=== PATIENT | female | born 1945 | race Caucasian/White ===

== ENCOUNTER 2017-11-28 05:13 | Outpatient (RCR) | payer MEDICARE, SELFPAY ==
[2017-11-28] MEDS: Normal Saline Flush 10 ML SYR IVP (07:35)
[2017-11-28 07:54] LABS: Abs Immature Grans 0.01 k/cumm (0.0-0.09); Absolute Basophil Count 0.01 k/cumm (0.0-0.2); Absolute Lymphocyte Count 0.88 k/cumm (1.2-3.4); Absolute Monocyte Count 0.99 k/cumm (0.11-0.7); Basophils % 0.4; Eosinophils % 7.2; HCT 27.2 % (36.0-46.0); HGB 8.6 g/dL (12.0-15.5); Immature Grans % 0.4; Lymphocytes % 31.5; Mean Corp. HGB Concentration 31.6 g/dL (32.0-36.0); Mean Corpuscular Hemoglobin 25.7 pg (27.0-33.0); Mean Corpuscular Volume 81.4 fL (80-95); Mean Platelet Volume 9.1 fL (8.0-11.0); Monocytes % 35.5; Platelet Count 516 x1000/uL (130-400); RBC 3.34 m/cumm (4.00-5.20); RBC Distribution Width 14.8 % (11.7-14.6); White Blood Cell Count 2.79 k/cumm (4.4-10.8)
[2017-11-28 08:07] LABS: ALT 44 U/L (12-78); AST 24 U/L (15-37); Albumin 2.6 g/dL (3.4-5.0); Alkaline Phosphatase 164 U/L (46-116); Anion Gap 6.3 mmol/L (3-11); BUN 13 mg/dL (7-18); Bilirubin, Total 0.2 mg/dL (0.2-1.0); CO2 27.7 mmol/L (21.0-32.0); CREATININE 0.99 mg/dL (0.55-1.02); Calcium 8.5 mg/dL (8.5-10.1); Chloride 97 mmol/L (98-107); Estimated GFR 55.29 (mL/min/1.73m2); Glucose 133 mg/dL (70-100); Potassium 4.5 mmol/L (3.5-5.1); Sodium 131 mmol/L (136-145); Total Protein 6.7 g/dL (6.4-8.2)
[2017-12-01 11:43] LABS: CA 19-9 21 U/mL (<35)
[2017-12-05] MEDS: Normal Saline Flush 10 ML SYR IVP (08:05)
[2017-12-05 08:29] LABS: Abs Immature Grans 0.07 k/cumm (0.0-0.09); Absolute Basophil Count 0.05 k/cumm (0.0-0.2); Absolute Eosinophil Count 0.15 k/cumm (0.0-0.7); Absolute Lymphocyte Count 1.48 k/cumm (1.2-3.4); Absolute Monocyte Count 1.16 k/cumm (0.11-0.7); Absolute Neutrophil Count 6.77 k/cumm (1.2-6.7); Basophils % 0.5; Eosinophils % 1.5; HCT 28.6 % (36.0-46.0); HGB 8.8 g/dL (12.0-15.5); Immature Grans % 0.7; Lymphocytes % 15.3; Mean Corp. HGB Concentration 30.8 g/dL (32.0-36.0); Mean Corpuscular Hemoglobin 25.4 pg (27.0-33.0); Mean Corpuscular Volume 82.7 fL (80-95); Mean Platelet Volume 9.7 fL (8.0-11.0); Platelet Count 535 x1000/uL (130-400); RBC 3.46 m/cumm (4.00-5.20); RBC Distribution Width 15.4 % (11.7-14.6); White Blood Cell Count 9.68 k/cumm (4.4-10.8)
[2017-12-05 08:44] LABS: ALT 26 U/L (12-78); AST 21 U/L (15-37); Albumin 2.6 g/dL (3.4-5.0); Alkaline Phosphatase 165 U/L (46-116); Anion Gap 9.9 mmol/L (3-11); BUN 19 mg/dL (7-18); Bilirubin, Total 0.2 mg/dL (0.2-1.0); CO2 29.1 mmol/L (21.0-32.0); CREATININE 1.08 mg/dL (0.55-1.02); Calcium 8.3 mg/dL (8.5-10.1); Chloride 96 mmol/L (98-107); Estimated GFR 50.01 (mL/min/1.73m2); Glucose 264 mg/dL (70-100); Sodium 135 mmol/L (136-145); Total Protein 6.9 g/dL (6.4-8.2)
[2017-12-05 09:15] LABS: Diff Comment Diff Reviewed
[2017-12-05 09:16] LABS: Hypochromasia 1+
[2017-12-09 11:47] LABS: CA 19-9 18 U/mL (<35)
[2017-12-19] MEDS: Normal Saline Flush 10 ML SYR IVP (08:01)
[2017-12-19 08:23] LABS: Abs Immature Grans 0.01 k/cumm (0.0-0.09); Absolute Basophil Count 0.02 k/cumm (0.0-0.2); Absolute Eosinophil Count 0.11 k/cumm (0.0-0.7); Absolute Lymphocyte Count 1.17 k/cumm (1.2-3.4); Absolute Monocyte Count 0.97 k/cumm (0.11-0.7); Basophils % 0.4; HCT 29.8 % (36.0-46.0); HGB 9.4 g/dL (12.0-15.5); Immature Grans % 0.2; Mean Corp. HGB Concentration 31.5 g/dL (32.0-36.0); Mean Corpuscular Hemoglobin 25.4 pg (27.0-33.0); Mean Corpuscular Volume 80.5 fL (80-95); Mean Platelet Volume 9.8 fL (8.0-11.0); Monocytes % 17.4; Platelet Count 475 x1000/uL (130-400); RBC Distribution Width 15.9 % (11.7-14.6); White Blood Cell Count 5.58 k/cumm (4.4-10.8)
[2017-12-19 08:37] LABS: ALT 32 U/L (12-78); AST 22 U/L (15-37); Alkaline Phosphatase 166 U/L (46-116); Anion Gap 4.6 mmol/L (3-11); BUN 14 mg/dL (7-18); Bilirubin, Total 0.3 mg/dL (0.2-1.0); CO2 31.4 mmol/L (21.0-32.0); CREATININE 1.12 mg/dL (0.55-1.02); Calcium 8.8 mg/dL (8.5-10.1); Chloride 98 mmol/L (98-107); Estimated GFR 47.96 (mL/min/1.73m2); Glucose 159 mg/dL (70-100); Potassium 4.3 mmol/L (3.5-5.1); Sodium 134 mmol/L (136-145); Total Protein 7.3 g/dL (6.4-8.2)
[2017-12-22 10:45] LABS: CA 19-9 25 U/mL (<35)
== END 2017-12-26 ==
LOC: INF 12-05 01:07
PROVIDERS: PCP Internal Medicine; Visit Provider Internal Medicine Hematology & Oncology
DX: C25.2 Malignant neoplasm of tail of pancreas (principal); C78.7 Secondary malignant neoplasm of liver and intrahepatic bile duct; Z45.2 Encounter for adjustment and management of vascular access device
CPT/HCPCS: 36591 ×3; 80053; 85025; 86301

== ENCOUNTER 2018-01-02 08:54 | Outpatient (CLI) | payer MEDICARE, SELFPAY ==
--- NOTE | 2018-01-02 09:09 | DI.US_ITS ---
SYMPTOM/DIAGNOSIS: LOW EXT EDEMA, R60.0, SWELLING, PAIN, H/O METASTATIC PANCREATIC CA, ? DVT LEFT LOWER EXTREMITY ULTRASOUND: The femoral and popliteal veins and visualized calf veins are freely compressible. No thrombus is visible. The doppler venous wave form augments normally. No localized fluid collection or hematoma is seen. IMPRESSION: Negative left lower extremity ultrasound. No evidence of DVT.
== END 2018-01-02 09:14 ==
PROVIDERS: PCP Internal Medicine; Visit Provider Internal Medicine Hematology & Oncology
DX: R60.0 Localized edema (principal); R22.42 Localized swelling, mass and lump, left lower limb; M79.605 Pain in left leg; Z85.07 Personal history of malignant neoplasm of pancreas
CPT/HCPCS: 93971

== ENCOUNTER 2018-01-16 00:40 | Outpatient (RCR) | payer MEDICARE, SELFPAY ==
[2018-01-02] MEDS: Normal Saline Flush 10 ML SYR IVP (07:00)
[2018-01-02 07:22] LABS: Abs Immature Grans 0.01 k/cumm (0.0-0.09); Absolute Basophil Count 0.03 k/cumm (0.0-0.2); Absolute Eosinophil Count 0.21 k/cumm (0.0-0.7); Absolute Lymphocyte Count 1.26 k/cumm (1.2-3.4); Absolute Monocyte Count 1.08 k/cumm (0.11-0.7); Absolute Neutrophil Count 3.94 k/cumm (1.2-6.7); Basophils % 0.5; Eosinophils % 3.2; HCT 30.1 % (36.0-46.0); HGB 9.3 g/dL (12.0-15.5); Immature Grans % 0.2; Lymphocytes % 19.3; Mean Corp. HGB Concentration 30.9 g/dL (32.0-36.0); Mean Corpuscular Hemoglobin 25.1 pg (27.0-33.0); Mean Corpuscular Volume 81.1 fL (80-95); Mean Platelet Volume 10.1 fL (8.0-11.0); Monocytes % 16.5; Neutrophils % 60.3; Platelet Count 351 x1000/uL (130-400); RBC 3.71 m/cumm (4.00-5.20); RBC Distribution Width 17.7 % (11.7-14.6); White Blood Cell Count 6.53 k/cumm (4.4-10.8)
[2018-01-02 07:35] LABS: ALT 20 U/L (12-78); AST 21 U/L (15-37); Alkaline Phosphatase 143 U/L (46-116); Anion Gap 2.7 mmol/L (3-11); BUN 15 mg/dL (7-18); Bilirubin, Total 0.2 mg/dL (0.2-1.0); CO2 30.3 mmol/L (21.0-32.0); CREATININE 1.13 mg/dL (0.55-1.02); Calcium 8.5 mg/dL (8.5-10.1); Chloride 102 mmol/L (98-107); Estimated GFR 47.47 (mL/min/1.73m2); Glucose 143 mg/dL (70-100); Potassium 4.3 mmol/L (3.5-5.1); Sodium 135 mmol/L (136-145)
[2018-01-05 11:56] LABS: CA 19-9 26 U/mL (<35)
[2018-01-16] MEDS: Normal Saline Flush 10 ML SYR IVP (07:05)
[2018-01-16 07:36] LABS: Absolute Basophil Count 0.03 k/cumm (0.0-0.2); Absolute Eosinophil Count 0.11 k/cumm (0.0-0.7); Absolute Lymphocyte Count 1.84 k/cumm (1.2-3.4); Absolute Monocyte Count 0.98 k/cumm (0.11-0.7); Absolute Neutrophil Count 2.11 k/cumm (1.2-6.7); Basophils % 0.6; Eosinophils % 2.2; HCT 31.7 % (36.0-46.0); HGB 9.8 g/dL (12.0-15.5); Lymphocytes % 36.3; Mean Corp. HGB Concentration 30.9 g/dL (32.0-36.0); Mean Corpuscular Hemoglobin 25.6 pg (27.0-33.0); Mean Corpuscular Volume 82.8 fL (80-95); Mean Platelet Volume 9.7 fL (8.0-11.0); Monocytes % 19.3; Neutrophils % 41.6; Platelet Count 294 x1000/uL (130-400); RBC 3.83 m/cumm (4.00-5.20); RBC Distribution Width 19.9 % (11.7-14.6); White Blood Cell Count 5.07 k/cumm (4.4-10.8)
[2018-01-16 07:58] LABS: ALT 25 U/L (12-78); AST 23 U/L (15-37); Albumin 3.2 g/dL (3.4-5.0); Alkaline Phosphatase 132 U/L (46-116); BUN 12 mg/dL (7-18); Bilirubin, Total 0.3 mg/dL (0.2-1.0); CREATININE 0.96 mg/dL (0.55-1.02); Chloride 102 mmol/L (98-107); Estimated GFR 57.29 (mL/min/1.73m2); Glucose 155 mg/dL (70-100); Potassium 4.2 mmol/L (3.5-5.1); Sodium 139 mmol/L (136-145); Total Protein 7.1 g/dL (6.4-8.2)
[2018-01-19 10:21] LABS: CA 19-9 20 U/mL (<35)
== END 2018-01-25 23:59 | disposition home or self-care (01) ==
LOC: INF 00:40
PROVIDERS: PCP Internal Medicine; Visit Provider Internal Medicine Hematology & Oncology
DX: C25.9 Malignant neoplasm of pancreas, unspecified (principal); C78.7 Secondary malignant neoplasm of liver and intrahepatic bile duct; Z45.2 Encounter for adjustment and management of vascular access device
CPT/HCPCS: 36591; 80053; 85025; 86301; 93971

== ENCOUNTER 2018-02-13 02:29 | Outpatient (RCR) | payer MEDICARE, SELFPAY ==
[2018-01-30] MEDS: Normal Saline Flush 10 ML SYR IVP (07:50)
[2018-01-30 08:17] LABS: Abs Immature Grans 0.01 k/cumm (0.0-0.09); Absolute Basophil Count 0.02 k/cumm (0.0-0.2); Absolute Eosinophil Count 0.09 k/cumm (0.0-0.7); Absolute Lymphocyte Count 2.18 k/cumm (1.2-3.4); Absolute Monocyte Count 0.99 k/cumm (0.11-0.7); Absolute Neutrophil Count 2.33 k/cumm (1.2-6.7); Basophils % 0.4; Eosinophils % 1.6; HGB 9.6 g/dL (12.0-15.5); Immature Grans % 0.2; Lymphocytes % 38.8; Mean Corpuscular Hemoglobin 26.9 pg (27.0-33.0); Monocytes % 17.6; Neutrophils % 41.4; Platelet Count 285 x1000/uL (130-400); RBC 3.57 m/cumm (4.00-5.20); RBC Distribution Width 21.4 % (11.7-14.6); White Blood Cell Count 5.62 k/cumm (4.4-10.8)
[2018-01-30 08:28] LABS: ALT 21 U/L (12-78); AST 20 U/L (15-37); Albumin 3.3 g/dL (3.4-5.0); Alkaline Phosphatase 113 U/L (46-116); Anion Gap 7.6 mmol/L (3-11); BUN 16 mg/dL (7-18); Bilirubin, Total 0.4 mg/dL (0.2-1.0); CO2 29.4 mmol/L (21.0-32.0); CREATININE 1.02 mg/dL (0.55-1.02); Chloride 100 mmol/L (98-107); Estimated GFR 53.42 (mL/min/1.73m2); Glucose 171 mg/dL (70-100); Sodium 137 mmol/L (136-145); Total Protein 7.1 g/dL (6.4-8.2)
[2018-02-02 11:39] LABS: CA 19-9 20 U/mL (<35)
[2018-02-13] MEDS: Normal Saline Flush 10 ML SYR IVP (07:20)
[2018-02-13 07:40] LABS: Abs Immature Grans 0.01 k/cumm (0.0-0.09); Absolute Basophil Count 0.04 k/cumm (0.0-0.2); Absolute Eosinophil Count 0.11 k/cumm (0.0-0.7); Absolute Lymphocyte Count 1.34 k/cumm (1.2-3.4); Absolute Monocyte Count 0.95 k/cumm (0.11-0.7); Absolute Neutrophil Count 2.07 k/cumm (1.2-6.7); Basophils % 0.9; Eosinophils % 2.4; HCT 30.7 % (36.0-46.0); HGB 9.6 g/dL (12.0-15.5); Immature Grans % 0.2; Lymphocytes % 29.6; Mean Corp. HGB Concentration 31.3 g/dL (32.0-36.0); Mean Corpuscular Hemoglobin 27.2 pg (27.0-33.0); Mean Platelet Volume 10.4 fL (8.0-11.0); Neutrophils % 45.9; Platelet Count 262 x1000/uL (130-400); RBC 3.53 m/cumm (4.00-5.20); RBC Distribution Width 22.3 % (11.7-14.6); White Blood Cell Count 4.52 k/cumm (4.4-10.8)
[2018-02-13 07:57] LABS: ALT 22 U/L (12-78); AST 21 U/L (15-37); Alkaline Phosphatase 120 U/L (46-116); Anion Gap 7.1 mmol/L (3-11); BUN 13 mg/dL (7-18); Bilirubin, Total 0.3 mg/dL (0.2-1.0); CO2 29.9 mmol/L (21.0-32.0); CREATININE 0.95 mg/dL (0.55-1.02); Calcium 9.1 mg/dL (8.5-10.1); Chloride 104 mmol/L (98-107); Estimated GFR 57.99 (mL/min/1.73m2); Glucose 122 mg/dL (70-100); Potassium 4.1 mmol/L (3.5-5.1); Sodium 141 mmol/L (136-145); Total Protein 6.7 g/dL (6.4-8.2)
[2018-02-16 11:21] LABS: CA 19-9 16 U/mL (<35)
== END 2018-02-25 23:59 | disposition home or self-care (01) ==
LOC: INF 02:29
PROVIDERS: PCP Internal Medicine; Visit Provider Internal Medicine Hematology & Oncology
DX: C25.9 Malignant neoplasm of pancreas, unspecified (principal); C78.7 Secondary malignant neoplasm of liver and intrahepatic bile duct; Z45.2 Encounter for adjustment and management of vascular access device
CPT/HCPCS: 36591; 80053; 85025; 86301

== ENCOUNTER 2018-03-27 00:46 | Outpatient (RCR) | payer MEDICARE, SELFPAY ==
[2018-02-27] MEDS: Normal Saline Flush 10 ML SYR IVP (07:05)
[2018-02-27 07:17] LABS: Abs Immature Grans 0.03 k/cumm (0.0-0.09); Absolute Basophil Count 0.04 k/cumm (0.0-0.2); Absolute Eosinophil Count 0.14 k/cumm (0.0-0.7); Absolute Monocyte Count 1.46 k/cumm (0.11-0.7); Absolute Neutrophil Count 5.68 k/cumm (1.2-6.7); Basophils % 0.5; Eosinophils % 1.6; HCT 32.3 % (36.0-46.0); Immature Grans % 0.3; Lymphocytes % 16.9; Mean Corpuscular Hemoglobin 27.9 pg (27.0-33.0); Mean Corpuscular Volume 90.2 fL (80-95); Mean Platelet Volume 10.3 fL (8.0-11.0); Monocytes % 16.5; Neutrophils % 64.2; Platelet Count 343 x1000/uL (130-400); RBC 3.58 m/cumm (4.00-5.20); RBC Distribution Width 20.2 % (11.7-14.6); White Blood Cell Count 8.85 k/cumm (4.4-10.8)
[2018-02-27 07:32] LABS: ALT 19 U/L (12-78); AST 20 U/L (15-37); Alkaline Phosphatase 119 U/L (46-116); Anion Gap 8.5 mmol/L (3-11); BUN 14 mg/dL (7-18); Bilirubin, Total 0.3 mg/dL (0.2-1.0); CO2 29.5 mmol/L (21.0-32.0); CREATININE 1.07 mg/dL (0.55-1.02); Calcium 9.1 mg/dL (8.5-10.1); Chloride 97 mmol/L (98-107); Estimated GFR 50.55 (mL/min/1.73m2); Glucose 185 mg/dL (70-100); Potassium 4.2 mmol/L (3.5-5.1); Sodium 135 mmol/L (136-145); Total Protein 6.9 g/dL (6.4-8.2)
[2018-03-02 10:18] LABS: CA 19-9 18 U/mL (<35)
[2018-03-13] MEDS: Normal Saline Flush 10 ML SYR IVP (07:10)
[2018-03-13 07:29] LABS: Absolute Basophil Count 0.03 k/cumm (0.0-0.2); Absolute Eosinophil Count 0.15 k/cumm (0.0-0.7); Absolute Lymphocyte Count 1.13 k/cumm (1.2-3.4); Absolute Monocyte Count 0.92 k/cumm (0.11-0.7); Absolute Neutrophil Count 3.08 k/cumm (1.2-6.7); Basophils % 0.6; Eosinophils % 2.8; HCT 30.5 % (36.0-46.0); HGB 9.6 g/dL (12.0-15.5); Lymphocytes % 21.3; Mean Corp. HGB Concentration 31.5 g/dL (32.0-36.0); Mean Corpuscular Hemoglobin 28.4 pg (27.0-33.0); Mean Corpuscular Volume 90.2 fL (80-95); Mean Platelet Volume 10.1 fL (8.0-11.0); Monocytes % 17.3; Platelet Count 324 x1000/uL (130-400); RBC 3.38 m/cumm (4.00-5.20); RBC Distribution Width 17.3 % (11.7-14.6); White Blood Cell Count 5.31 k/cumm (4.4-10.8)
[2018-03-13 07:41] LABS: ALT 19 U/L (12-78); AST 18 U/L (15-37); Albumin 2.9 g/dL (3.4-5.0); Alkaline Phosphatase 139 U/L (46-116); Anion Gap 7.4 mmol/L (3-11); BUN 11 mg/dL (7-18); Bilirubin, Total 0.3 mg/dL (0.2-1.0); CO2 29.6 mmol/L (21.0-32.0); CREATININE 1.04 mg/dL (0.55-1.02); Calcium 8.9 mg/dL (8.5-10.1); Chloride 101 mmol/L (98-107); Estimated GFR 52.24 (mL/min/1.73m2); Glucose 201 mg/dL (70-100); Potassium 4.3 mmol/L (3.5-5.1); Sodium 138 mmol/L (136-145); Total Protein 6.9 g/dL (6.4-8.2)
[2018-03-16 11:20] LABS: CA 19-9 14 U/mL (<35)
[2018-03-27] MEDS: Heparin 500 UNITS/5 ML SYRINGE IV (08:27)
[2018-03-27] MEDS: Normal Saline Flush 10 ML SYR IVP (08:27)
[2018-03-27 09:22] LABS: Abs Immature Grans 0.01 k/cumm (0.0-0.09); Absolute Basophil Count 0.02 k/cumm (0.0-0.2); Absolute Eosinophil Count 0.08 k/cumm (0.0-0.7); Absolute Lymphocyte Count 1.43 k/cumm (1.2-3.4); Absolute Monocyte Count 1.22 k/cumm (0.11-0.7); Absolute Neutrophil Count 2.62 k/cumm (1.2-6.7); Basophils % 0.4; Eosinophils % 1.5; HCT 31.3 % (36.0-46.0); HGB 9.9 g/dL (12.0-15.5); Immature Grans % 0.2; Lymphocytes % 26.6; Mean Corp. HGB Concentration 31.6 g/dL (32.0-36.0); Mean Corpuscular Volume 88.7 fL (80-95); Mean Platelet Volume 10.4 fL (8.0-11.0); Monocytes % 22.7; Neutrophils % 48.6; Platelet Count 341 x1000/uL (130-400); RBC 3.53 m/cumm (4.00-5.20); RBC Distribution Width 16.4 % (11.7-14.6); White Blood Cell Count 5.38 k/cumm (4.4-10.8)
[2018-03-27 09:24] LABS: ALT 31 U/L (12-78); AST 21 U/L (15-37); Albumin 3.1 g/dL (3.4-5.0); Alkaline Phosphatase 146 U/L (46-116); Anion Gap 5.9 mmol/L (3-11); BUN 14 mg/dL (7-18); Bilirubin, Total 0.2 mg/dL (0.2-1.0); CO2 31.1 mmol/L (21.0-32.0); CREATININE 1.06 mg/dL (0.55-1.02); Calcium 9.2 mg/dL (8.5-10.1); Chloride 99 mmol/L (98-107); Glucose 169 mg/dL (70-100); Potassium 4.6 mmol/L (3.5-5.1); Sodium 136 mmol/L (136-145); Total Protein 7.4 g/dL (6.4-8.2)
[2018-03-30 11:35] LABS: CA 19-9 21 U/mL (<35)
== END 2018-03-27 23:59 | disposition home or self-care (01) ==
LOC: INF 00:46
PROVIDERS: PCP Internal Medicine; Visit Provider Internal Medicine Hematology & Oncology
DX: C25.9 Malignant neoplasm of pancreas, unspecified (principal); C78.7 Secondary malignant neoplasm of liver and intrahepatic bile duct; Z45.2 Encounter for adjustment and management of vascular access device
CPT/HCPCS: 36591; 80053; 85025; 86301

== ENCOUNTER 2018-04-24 01:29 | Outpatient (RCR) | payer MEDICARE, SELFPAY ==
[2018-04-07] MEDS: Normal Saline Flush 10 ML SYR IVP (08:51)
[2018-04-07 09:09] LABS: Abs Immature Grans 0.04 k/cumm (0.0-0.09); Absolute Basophil Count 0.02 k/cumm (0.0-0.2); Absolute Lymphocyte Count 1.55 k/cumm (1.2-3.4); Absolute Monocyte Count 1.85 k/cumm (0.11-0.7); Absolute Neutrophil Count 5.89 k/cumm (1.2-6.7); Basophils % 0.2; Eosinophils % 1.1; HCT 31.5 % (36.0-46.0); HGB 9.6 g/dL (12.0-15.5); Immature Grans % 0.4; Lymphocytes % 16.4; Mean Corp. HGB Concentration 30.5 g/dL (32.0-36.0); Mean Corpuscular Hemoglobin 27.2 pg (27.0-33.0); Mean Corpuscular Volume 89.2 fL (80-95); Mean Platelet Volume 10.6 fL (8.0-11.0); Monocytes % 19.6; Neutrophils % 62.3; Platelet Count 427 x1000/uL (130-400); RBC 3.53 m/cumm (4.00-5.20); RBC Distribution Width 15.9 % (11.7-14.6); White Blood Cell Count 9.45 k/cumm (4.4-10.8)
[2018-04-07 09:25] LABS: ALT 19 U/L (12-78); AST 22 U/L (15-37); Albumin 2.8 g/dL (3.4-5.0); Alkaline Phosphatase 136 U/L (46-116); Anion Gap 8.1 mmol/L (3-11); BUN 14 mg/dL (7-18); Bilirubin, Total 0.3 mg/dL (0.2-1.0); CO2 29.9 mmol/L (21.0-32.0); CREATININE 1.05 mg/dL (0.55-1.02); Calcium 8.9 mg/dL (8.5-10.1); Chloride 96 mmol/L (98-107); Estimated GFR 51.66 (mL/min/1.73m2); Glucose 161 mg/dL (70-100); Potassium 4.1 mmol/L (3.5-5.1); Sodium 134 mmol/L (136-145); Total Protein 7.3 g/dL (6.4-8.2)
[2018-04-07 09:26] LABS: Acanthocytes 2+; Anisocytosis 1+; Diff Comment Diff Reviewed
[2018-04-07 09:27] LABS: Howell-Jolly Bodies Present; Hypochromasia 1+; Schistocytes 1+
[2018-04-07 09:28] LABS: Poikilocytes 2+
[2018-04-08 10:36] LABS: CA 19-9 15 U/mL (<35)
[2018-04-24] MEDS: Normal Saline Flush 10 ML SYR IVP (08:11)
[2018-04-24 08:25] LABS: Abs Immature Grans 0.02 k/cumm (0.0-0.09); Absolute Basophil Count 0.02 k/cumm (0.0-0.2); Absolute Eosinophil Count 0.12 k/cumm (0.0-0.7); Absolute Lymphocyte Count 0.97 k/cumm (1.2-3.4); Absolute Monocyte Count 1.48 k/cumm (0.11-0.7); Absolute Neutrophil Count 2.96 k/cumm (1.2-6.7); Basophils % 0.4; Eosinophils % 2.2; HGB 9.4 g/dL (12.0-15.5); Immature Grans % 0.4; Lymphocytes % 17.4; Mean Corp. HGB Concentration 31.3 g/dL (32.0-36.0); Mean Corpuscular Hemoglobin 27.5 pg (27.0-33.0); Mean Corpuscular Volume 87.7 fL (80-95); Mean Platelet Volume 10.6 fL (8.0-11.0); Monocytes % 26.6; Platelet Count 413 x1000/uL (130-400); RBC 3.42 m/cumm (4.00-5.20); RBC Distribution Width 15.4 % (11.7-14.6); White Blood Cell Count 5.57 k/cumm (4.4-10.8)
[2018-04-24 08:40] LABS: ALT 17 U/L (12-78); AST 17 U/L (15-37); Albumin 2.6 g/dL (3.4-5.0); Alkaline Phosphatase 126 U/L (46-116); Anion Gap 4.5 mmol/L (3-11); BUN 13 mg/dL (7-18); Bilirubin, Total 0.3 mg/dL (0.2-1.0); CO2 31.5 mmol/L (21.0-32.0); CREATININE 1.07 mg/dL (0.55-1.02); Chloride 94 mmol/L (98-107); Estimated GFR 50.55 (mL/min/1.73m2); Glucose 210 mg/dL (70-100); Potassium 4.3 mmol/L (3.5-5.1); Sodium 130 mmol/L (136-145); Total Protein 6.8 g/dL (6.4-8.2)
== END 2018-04-27 23:59 | disposition home or self-care (01) ==
LOC: INF 01:29
PROVIDERS: PCP Internal Medicine; Visit Provider Internal Medicine Hematology & Oncology
DX: C25.9 Malignant neoplasm of pancreas, unspecified (principal); C78.7 Secondary malignant neoplasm of liver and intrahepatic bile duct; Z45.2 Encounter for adjustment and management of vascular access device
CPT/HCPCS: 36591; 80053; 85025; 86301

== ENCOUNTER 2018-05-15 10:21 | Emergency (ER) | payer MEDICARE, SELFPAY ==
[2018-05-15] VITALS (46 sets, daily range): BP systolic 139–178; BP diastolic 63–93; PULSE 67–85; RESP 10–28; TEMP 36.5; O2SAT 95–100
--- NOTE | 2018-05-15 11:03 | ED.GENADUL_ITS ---
Discharge Plan Disposition Patient Disposition: HOME Condition: Stable Discharge Details Chief Complaint: Chest Pain Clinical Impression: Pulmonary embolism, History of pancreatic cancer, Lung metastasis, Liver metastases Primary Care Provider: Sagar Wiley ED Provider: Selene Pwoer Home Meds and New Rx's Prescriptions: New enoxaparin [Lovenox] 60 mg/0.6 mL syringe 60 mg SC Q12H 30 Days Qty: 36 RF: 0 Continued atorvastatin 80 MG tablet 80 mg PO DAILY RF: 0 acetaminophen 325 MG tablet 650 mg PO Q6H PRN RF: 0 ondansetron HCl 8 MG tablet 8 mg PO Q8H PRN RF: 0 prochlorperazine maleate 10 MG tablet 10 mg PO Q6H PRN Qty: 6 RF: 6 aspirin 81 MG tablet,delayed release (DR/EC) 81 mg PO DAILY RF: 0 alprazolam 0.25 MG tablet 0.25 mg PO DAILY RF: 0 pantoprazole 40 MG tablet,delayed release (DR/EC) 40 mg PO BID RF: 0 losartan 25 MG tablet 25 mg PO DAILY RF: 0 nitroglycerin 0.4 MG tablet, sublingual 0.4 mg Buccal ONCE RF: 0 docusate sodium 100 MG capsule 100 mg PO Q12H PRN RF: 0 vitamin B complex [B Complex-Vitamin B12] 1 EACH tablet 1 ea PO DAILY RF: 0 oxycodone 5 MG tablet 5 - 10 mg PO Q4H PRN RF: 0 cholecalciferol (vitamin D3) 1,000 UNIT capsule 1,000 unit PO DAILY RF: 0 coQ10 (ubiquinol) 100 MG capsule 1 tab PO DAILY RF: 0 [id number] [Creon] 1 EACH capsule,delayed release(DR/EC) 1 ea PO RF: 0 Metoprolol Succinate 50 MG TAB.ER.24H 3 tab PO BID RF: 0 Discharge Instructions Instructions: Pulmonary Embolism (GEN), Pancreatic Cancer (GEN) Additional Instructions: Take your Lovenox as directed. Call Dr. Ayala today to schedule follow-up appointment for reevaluation next week. Return immediately to the emergency department with any worsening or new concern ing symptoms such as worsening pain, shortness of breath or any other concerns. Discharge Data Discharge Date/Time-TO BE ENTERED AT DEPARTURE: 05/15/18 16:55 Discharge Physician: Selene J Bugbee Medical Decision Making 72-year-old female with a history of pancreatic cancer diagnosed in 2017, coronary artery disease with one cardiac stent, hypertension high cholesterol who presents with intermittent chest pain and right upper quadrant pain with associated shortness of breath, nausea, dizziness, sweating and decreased appetite with 10 pound weight loss over the past 3-weeks. Sent here by Dr. Ayala from the [facility]. She had lab work done this morning which noted a white blood cell count of 21, hemoglobin 9.2, sodium 130, normal LFTs. She also had a chest x-ray which appears negative for infection. She has right upper quadrant tenderness to palpation. Her EKG notes a rate of 72, sinus, less than [address] depression 2 and aVF but no acute ST elevation. Differential diagnosis includes ACS, angina, PE, pneumonia, dissection, as well as possible GI related complaints including constipation, gas, gastritis, metastasis, cholecystitis. Will place an IV, bolus IV fluids, morphine, will add troponin and lipase, urinalysis as well as CT chest to rule out PE and CT abdomen and pelvis. 1240 -- discussed with radiologist. Patient has PE in bilateral lower lobes as well as pulmonary and hepatic masses likely consistent with metastases. This is new since 2017 imaging. No evidence of RV strain. 1300 -- d/w hospitalist Dr. Sánchez - states as pt hemodynamically stable, patient does not meet criteria for admission. Recommends outpatient Lovenox. Will come evaluate patient and do consult. 1400 -- d/w Dr. saucedo who d/w Dr. Ayala - after pt evaluation she is stable for discharge - Dr. Ayala in agreement with plan - please see hospitalist notes for further discussion. Plan for 1 mg/kg SC BID Lovenox dosing. Patient was given 1 dose here as well as kit for home. It was discussed with pharmacy and will plan for 60 mg SC BID. Patient had 2 negative troponins and she remains hemodynamically stable. As for her leukocytosis, unsure of the source at this time. May be stress response. She had negative urinalysis and no acute source of infection on ct chest or abdomen and no fever or tachycardia. She will follow up with Dr. Ayala and her primary care doctor for further evaluation. Pt feels good with plan for home and she is instructed to return here at any time if worse. Medical Records Medical records reviewed: Yes I reviewed the patient's medical records. Imaging Data Radiologic Study: Radiologist's impression: CT SCAN OF THE CHEST, ABDOMEN AND PELVIS: CT SCAN OF THE ABDOMEN AND PELVIS: There are hepatic masses seen, most suggestive of hepatic metastasis; the largest is in the right hepatic lobe and measures 9.7 cm AP x 5.5 cm transverse x 6 cm craniocaudad. The superior mesenteric and portal vein are patent. The gallbladder is negative. No biliary ductal dilatation is seen. Since the prior examination, the patient appears to have had resection of a large portion of the tail and a significant portion of the body of the pancreas. The head of the pancreas is visualized and is grossly unremarkable. 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 The right adrenal gland is unremarkable. There is again seen a small nodule on the left adrenal gland. The kidneys show normal and symmetric enhancement. No evidence of a solid renal mass is present. There does appear to be mild cortical atrophy of the left kidney. The urinary bladder is intact. The reproductive organs are unremarkable. There is a 3 x 3.4 cm cyst in the left adnexa. This was present on the prior examination. The bowel shows no evidence of obstruction or inflammation. There is thickening of the wall of the stomach diffusely. This may be due to underdistention. There is atherosclerosis of the abdominal aorta, but no aneurysmal dilatation. No significant abdominal or pelvic adenopathy, ascites or pneumoperitoneum is present. Degenerative changes are seen in the spine. No aggressive osseous lesions are present. Note is again made of a fibroid uterus. IMPRESSION: 1. Status post resection of the body and tail of the pancreas. 2. Hepatic masses, most consistent with metastatic disease. 3. Stable left adrenal nodule. 4. Mild left renal cortical atrophy. 5. Stable left adnexal cystic lesion. CT SCAN OF THE CHEST: There are filling defects seen in branches of the pulmonary arteries in the lower lobes bilaterally consistent with pulmonary emboli. No emboli are seen in the main pulmonary or right and left pulmonary arteries. The thoracic aorta is intact. No aneurysmal dilatation is seen. The heart size is within normal limits. No evidence of right ventricular dysfunction is seen. No significant pericardial effusion is present. No significant thoracic adenopathy, pleural effusion or pneumothorax is identified. There is a mass seen in the inferior aspect of the right upper lobe measuring 1.3 x 1.3 cm. No focal consolidating infiltrates are seen. Dependent atelectatic changes are seen in the lungs. The tracheobronchial tree is unremarkable. Degenerative changes are seen in the spine. IMPRESSION: 1. Right upper lobe pulmonary mass. Diagnostic considerations are for primary bronchogenic carcinoma versus metastatic disease. 2. Findings of bilateral lower lobe pulmonary emboli. Lab Data Lab results reviewed: Yes I reviewed the patient's lab results. Laboratory Tests Range/Units 05/15/18 05/15/18 05/15/18 08:45 13:10 13:20 PT (9.3-11.0) sec 11.6 H INR (0.9-1.1) 1.2 H APTT (21.0-31.4) sec 25.1 Troponin I (0.00-0.06) ng/mL 0.04 Lipase (73-393) U/L 60 L Urine Color (Yellow) Yellow Urine Clarity Clear Urine pH (5-8) 7.0 Ur Specific [place] (1.005-1.025) 1.010 Urine Protein (Negative) mg/dL Negative Urine Ketones (Negative) mg/dL Negative Urine Blood (Negative) Negative Urine Nitrite (Negative) Negative Urine Bilirubin (Negative) Negative Urine Urobilinogen (Up TO 0.2) EU/dL 0.2 Ur Leukocyte Esterase (Negative) Negative Urine Glucose (Negative) mg/dL Negative Range/Units 05/15/18 14:50 PT (9.3-11.0) sec INR (0.9-1.1) APTT (21.0-31.4) sec Troponin I (0.00-0.06) ng/mL 0.02 Lipase (73-393) U/L Urine Color (Yellow) Urine Clarity Urine pH (5-8) Ur Specific [place] (1.005-1.025) Urine Protein (Negative) mg/dL Urine Ketones (Negative) mg/dL Urine Blood (Negative) Urine Nitrite (Negative) Urine Bilirubin (Negative) Urine Urobilinogen (Up TO 0.2) EU/dL Ur Leukocyte Esterase (Negative) Urine Glucose (Negative) mg/dL ECG Data Attestation: I personally reviewed and interpreted this ECG (s) as follows: Interpretation: 1030-- 72, sinus, no acute ST elevation or depression, QTc 444, QRS 88. HPI General Mode of arrival: ambulatory . Date/Time Provider Initiated Documentation: 05/15/18 10:22 . Limitations to Documentation: no limitations . Information obtained by: patient . HPI Narrative: Patient is a 72-year-old female with a history of coronary artery disease, hypertension, high cholesterol and pancreatic cancer who presents with chest pain for the past few weeks. Patient states she was diagnosed with pancreatic cancer in September 2016 and has been undergoing chemo since September 2017. She states her last chemo session was last month. She states her chest pain has been intermittent, substernal, feels pressure-like which is worse with exertion. Patient states the pain was better today with nitro x2. Patient states the pain radiates through to her back. States the pain is currently 3/10. She also admits to right upper quadrant abdominal pain for the past few weeks. She also admits to constipation, decr eased appetite and a 10 pound weight loss over the past 3 weeks. Patient states her last good bowel movement was 2 weeks ago and that she has been using Colace and suppositories without relief. Patient also admits to shortness of breath, nausea, dizziness and sweating this morning. Patient states she was sent here by Dr. Ayala at the [facility] today. Related Data Home Medications Medication Instructions Recorded Confirmed Metoprolol Succinate 3 tab PO BID 12/16/17 acetaminophen 650 mg PO Q6H PRN tab-cap 12/16/17 alprazolam 0.25 mg PO DAILY 12/16/17 aspirin 81 mg PO DAILY tab-cap 12/16/17 atorvastatin 80 mg PO DAILY tab-cap 12/16/17 cholecalciferol (vitamin D3) 1,000 unit PO DAILY 12/16/17 coQ10 (ubiquinol) 1 tab PO DAILY 12/16/17 docusate sodium 100 mg PO Q12H PRN 12/16/17 [id number] [Creon] 1 ea PO 12/16/17 losartan 25 mg PO DAILY tab-cap 12/16/17 nitroglycerin 0.4 mg BUCCAL ONCE tab-cap 12/16/17 ondansetron HCl 8 mg PO Q8H PRN tab-cap 12/16/17 oxycodone 5 - 10 mg PO Q4H PRN tab-cap 12/16/17 pantoprazole 40 mg PO BID tab-cap 12/16/17 prochlorperazine maleate 10 mg PO Q6H PRN #6 tab-cap 12/16/17 vitamin B complex [B 1 ea PO DAILY 12/16/17 Complex-Vitamin B12] enoxaparin [Lovenox] 60 mg SC Q12H 30 Days #36 ml 05/15/18 Previous Rx's Medication Instructions Recorded enoxaparin [Lovenox] 60 mg SC Q12H 30 Days #36 ml 05/15/18 Allergies Allergy/AdvReac Type Severity Reaction Status Date / Time mold Allergy Unverified 12/16/17 15:22 lisinopril AdvReac cough Unverified 12/16/17 15:22 pravastatin AdvReac increased Unverified 12/16/17 15:22 liver readings General Stated Complaint: Chest Pain FABIO: 2 Review of Systems Review of Systems All systems reviewed & are unremarkable except as noted in HPI and below Constitutional Reports as per HPI, Denies chills and Denies fever(s) Eyes Denies blurry vision ENT Reports dizziness, Denies sore throat and Denies throat swelling Cardiovascular Reports chest pain and Reports dyspnea Respiratory Reports dyspnea Gastrointestinal Reports abdominal pain, Reports constipation, Denies diarrhea, Reports nausea and Denies vomiting Genitourinary Denies hematuria and Denies dysuria Musculoskeletal Denies back pain and Denies numbness Integumentary/Breasts Denies lesions and Denies rash Neurologic Reports dizziness and Denies numbness Allergic/Immunologic Denies throat swelling [facility] Medical History Pulmonary embolism (Acute) Leukocytosis (Acute) Dyslipidemia (Chronic) Hypertension (Chronic) Pancreatic cancer (Chronic) Metastasis from pancreatic cancer (Chronic) CAD (coronary artery disease) (Chronic) Surgical History Stented coronary artery (Chronic) History of pancreatectomy (Acute) Social History Smoking/Tobacco Use Status: Former Tobacco Use how long ago did patient quit smokins alcohol intake: former year quit: 2016 details: drank more heavily in the substance use type: other details: CBD oil Exam Const General: cooperative, healthy appearing, no acute distress, frail appearing, ill appearing and other Nutritional Appearance: thin Orientation: alert, awake and oriented x3 HENMT Head: normal to inspection Mouth: oral mucosae normal Eyes General: appearance normal, both eyes and all related structures Neck Neck: normal visual inspection Chest Chest: normal inspection of the chest, normal palpation of entire chest wall and no tenderness Breast inspection: normal inspection of the breasts Resp Effort & Inspection: normal respiratory effort and able to speak in complete sentences Auscultation: clear to auscultation bilaterally Cardio Rate: regular rate Rhythm: regular rhythm GI Inspection: normal to inspection Palpation: not firm, no guarding, no hepatomegaly, no masses, not rigid and tender in the RUQ Back/Spine/Pelvis Back: no CVA tenderness Thoracic/Lumbar Spine: thoracic and lumbar spine normal to inspection Skin General skin exam: no rashes or lesions noted Neuro General: alert, awake and oriented x3 Motor: muscle tone normal throughout Extrem General: normal to inspection, full ROM and no edema Psych Appearance: grossly normal Affect: normal affect Course Vital Signs Temperature 97.7 F 05/15/18 10:24 Pulse 80 05/15/18 10:24 Respiratory Rate 18 05/15/18 10:24 Blood Pressure 161/73 H 05/15/18 10:24 Pulse Oximetry 99 05/15/18 10:24 Temperature 97.7 F 05/15/18 10:24 Temperature Source Temporal Artery Scan 05/15/18 10:24 Pulse 80 05/15/18 10:24 Respiratory Rate 18 05/15/18 10:24 Respiratory Effort Non-Labored 05/15/18 10:24 Blood Pressure 161/73 H 05/15/18 10:24 Pulse Oximetry 99 05/15/18 10:24 Oxygen Delivery Method Room Air 05/15/18 10:24 Oxygen Flow Rate 0 05/15/18 10:24 Pain Level 3 05/15/18 10:24
[2018-05-15] MEDS: Normal Saline 250 ML 500 ML IV (11:11)
[2018-05-15] MEDS: MORPHine 10 MG/ML VIAL 4 MG IVP (11:12)
[2018-05-15 11:21] LABS: Lipase 60 U/L (73-393); Troponin I 0.04 ng/mL (0.00-0.06)
[2018-05-15] MEDS: Omnipaque 350 MG/ML 100 ML BTL IJ (12:24)
--- NOTE | 2018-05-15 12:24 | DI.CT_ITS ---
SYMPTOMS/DIAGNOSIS: CHEST PAIN, RIGHT UPPER QUADRANT PAIN, H/O PANCREATIC CA, ? PE, ? ACUTE ABDOMINAL PROCESS CT SCAN OF THE CHEST, ABDOMEN AND PELVIS: CT angiography was performed with multi slice acquisition and multi planar and 3D reconstruction. Comparison examination is 03/05/17. CT SCAN OF THE ABDOMEN AND PELVIS: There are hepatic masses seen, most suggestive of hepatic metastasis; the largest is in the right hepatic lobe and measures 9.7 cm AP x 5.5 cm transverse x 6 cm craniocaudad. The superior mesenteric and portal vein are patent. The gallbladder is negative. No biliary ductal dilatation is seen. Since the prior examination, the patient appears to have had resection of a large portion of the tail and a significant portion of the body of the pancreas. The head of the pancreas is visualized and is grossly unremarkable. 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 The right adrenal gland is unremarkable. There is again seen a small nodule on the left adrenal gland. The kidneys show normal and symmetric enhancement. No evidence of a solid renal mass is present. There does appear to be mild cortical atrophy of the left kidney. The urinary bladder is intact. The reproductive organs are unremarkable. There is a 3 x 3.4 cm cyst in the left adnexa. This was present on the prior examination. The bowel shows no evidence of obstruction or inflammation. There is thickening of the wall of the stomach diffusely. This may be due to underdistention. There is atherosclerosis of the abdominal aorta, but no aneurysmal dilatation. No significant abdominal or pelvic adenopathy, ascites or pneumoperitoneum is present. Degenerative changes are seen in the spine. No aggressive osseous lesions are present. Note is again made of a fibroid uterus. IMPRESSION: 1. Status post resection of the body and tail of the pancreas. 2. Hepatic masses, most consistent with metastatic disease. 3. Stable left adrenal nodule. 4. Mild left renal cortical atrophy. 5. Stable left adnexal cystic lesion. CT SCAN OF THE CHEST: There are filling defects seen in branches of the pulmonary arteries in the lower lobes bilaterally consistent with pulmonary emboli. No emboli are seen in the main pulmonary or right and left pulmonary arteries. The thoracic aorta is intact. No aneurysmal dilatation is seen. The heart size is within normal limits. No evidence of right ventricular dysfunction is seen. No significant pericardial effusion is present. No significant thoracic adenopathy, pleural effusion or pneumothorax is identified. There is a mass seen in the inferior aspect of the right upper lobe measuring 1.3 x 1.3 cm. No focal consolidating infiltrates are seen. Dependent atelectatic changes are seen in the lungs. The tracheobronchial tree is unremarkable. Degenerative changes are seen in the spine. IMPRESSION: 1. Right upper lobe pulmonary mass. Diagnostic considerations are for primary bronchogenic carcinoma versus metastatic disease. 2. Findings of bilateral lower lobe pulmonary emboli. The findings were discussed with Selene Power of the Emergency Department on the date of the examination.
--- NOTE | 2018-05-15 13:02 | NUR.NOTE ---
Nursing Note: [facility] continues to be in no acute distress, admits to significant relief from morphine.
[2018-05-15] MEDS: Enoxaparin 60 MG/0.6 ML SYR 57 MG SC (13:07)
[2018-05-15 13:28] LABS: Bilirubin Negative (Negative); Blood Negative (Negative); Clarity Clear; Glucose Negative (Negative); Ketones Negative (Negative); Leukocyte Esterase Negative (Negative); Nitrite Negative (Negative); Urobilinogen 0.2 EU/dL (Up TO 0.2)
--- NOTE | 2018-05-15 13:35 | NUR.NOTE ---
Nursing Note: MD Sánchez is at the bedside.
[2018-05-15 13:48] LABS: INR 1.2 (0.9-1.1); PTT Activated 25.1 sec (21.0-31.4); Prothrombin Time 11.6 sec (9.3-11.0)
--- NOTE | 2018-05-15 14:19 | MCONE_ITS ---
Date of service: 05/15/18 Time of Service: 14:19 Assessment and Plan (1) Pulmonary embolism: Current visit: Yes Status: Acute Evidence of PEs without significant clot burden or signs of RV strain. The patient is hemodynamically stable - no hypotension or tachycardia. She is saturating well on room air. Also without evidence of infiltrates that would suggest pulmonary infarcts. Mrs. Negron is stable and should be safe for outpatient management. Given active malignancy will require treatment with therapeutic Enoxaparin. Of note, patient also has a history of either gastritis or UGI Bleeding in the past on Clopidogrel - however currently remains on BID PPI, and will regardless need to be anticoagulated. Will continue twice daily protonix, but given history she may benefit from twice daily Lovenox injections in case of a bleed in the future. This was communicated to the patient as well as ED attending. Discussed case with patient's oncologist, Dr. Ayala, who is in agreement with above plan. (2) Leukocytosis: Current visit: Yes Status: Acute Evidence of Leukocytosis without known etiology. Discussed this with Dr. Ayala as well - not associated with her malignancy or therapy. Urinalysis checked and normal CT Chest without infiltrates, and CT of the Abdomen and Pelvis without any pathology that would be infectious in etiology. Liver lesions thought likely due to metastatic process, and not suspicious for abscess or other infectious etiology per discussion with radiology. Unsure of source for patient's leukocytosis at this time. Will need careful outpatient monitoring. (3) Chest pain: Current visit: Yes Status: Acute Chest Pain in patient with prior history of CAD and stenting last year. Symptoms sound atypical and likely due to noncardiac etiology - very likely due to current PEs. EKG checked and non-ischemic, and troponin negative. Chest pain ongoing for a number of weeks. If pain does not recede with anticoagulation will require further work-up, but currently doubt cardiac source. History of Present Illness Chief Complaint: Chest Pain Narrative: Very pleasant but unfortunate 72 year old womna with a past medical history significant for Metastatic Pancreatic Ca, presents to [facility] Emergency Department with complaints of chest pain. Mrs. Negron has a history of HTN, High Cholesterol, and CAD for which she underwent stenting last year. She also reports a history of potential upper GI issues (Unknown bleed vs. gastritis) while on plavix, for which she is under treatment with twice daily PPI therapy. She [place] [facility] The patient also follows with Dr. Ayala at [facility] for a history of Metastatic Pancreatic Cancer. The patient has been reportedly experiencing chest pain for a few weeks now, described as the sensation one would feel when 'taking a deep breath in the cold'. Her EKG was reviewed and showed lack of ischemic changes, and her troponin was checked and negative. A subsequent CT of the chest reportedly showed evidence of b/l PEs - reviewed findings with radiologist, officially interpreted as without RV strain. Also without noted pulmonary infiltrates. Note was made of recent blood draw showing a leukocytosis without known etiology. No infectious pathology on CT chest, a/p, and with normal urinalysis. Medical Consultation was requested for management options for Mrs. Negron. Review of Systems Review of Systems All systems reviewed & are unremarkable except as noted in HPI and below PFSH Medical History Pulmonary embolism (Acute) Leukocytosis (Acute) Dyslipidemia (Chronic) Hypertension (Chronic) Pancreatic cancer (Chronic) Metastasis from pancreatic cancer (Chronic) CAD (coronary artery disease) (Chronic) Surgical History Stented coronary artery (Chronic) Social History Smoking/Tobacco Use Status: Former Tobacco Use Results Last Vital Signs Temp 36.5 C 05/15/18 10:24 Pulse 80 05/15/18 10:24 Resp 18 05/15/18 10:24 BP 161/73 H 05/15/18 10:24 Pulse Ox 99 05/15/18 10:24 Labs Laboratory Results - last 24 hr 05/15/18 05/15/18 05/15/18 08:45 13:10 13:20 PT 11.6 H INR 1.2 H APTT 25.1 Troponin I 0.04 Lipase 60 L Urine Color Yellow Urine Clarity Clear Urine pH 7.0 Ur Specific [place] 1.010 Urine Protein Negative Urine Ketones Negative Urine Blood Negative Urine Nitrite Negative Urine Bilirubin Negative Urine Urobilinogen 0.2 Ur Leukocyte Esterase Negative Urine Glucose Negative
--- NOTE | 2018-05-15 14:36 | PDOC.ERCMPRO ---
Care Management Progress Note 05/15-Dr. Power requested assistance with home lovenox. Discussed with patient and her pharmacy is [facility] in [place]. Called [facility] in [place] and spoke with Rohit. Rohit stated that he has Lovemox 60 mg SC BID and Dr. Power stated that would be what she is ordering. Rohit states that they have it in stock. Rohit requested that the script be faxed to [phone] which it will once it is ready, [facility] states he can do the lovenox injections. Dianna RN requested a lovenox teaching kit. Called [facility]Surg and spoke with Alma who has sent down a teaching kit. Kit given to Dianna.
--- NOTE | 2018-05-15 14:41 | CMPROGNOTE_ITS ---
Care Management Progress Note 05/15-Dr. Power requested assistance with home lovenox. Discussed with patient and her pharmacy is [facility] in [place]. Called [facility] in [place] and spoke with Rohit. Rohit stated that he has Lovemox 60 [address]. Power stated that would be what she is ordering. Rohit states that they have it in stock. Rohit requested that the script be faxed to [phone] which it will once it is ready, Lucita's states he can do the lovenox injections. Dianna RN requested a lovenox teaching kit. Called [facility] and spoke with Alma who has sent down a teaching kit. Kit given to Dianna.
[2018-05-15 15:11] LABS: Troponin I 0.02 ng/mL (0.00-0.06)
--- NOTE | 2018-05-15 15:41 | NUR.NOTE ---
Nursing Note: This RN sat with patient and her significant other reviewing Lovenox instructions, both were very appropriate and comfortable with drug administration.
== END 2018-05-15 16:55 | disposition home or self-care (01) ==
PROVIDERS: Emergency Provider Physician Assistant; PCP Internal Medicine
DX: I26.99 Other pulmonary embolism without acute cor pulmonale (principal); R10.11 Right upper quadrant pain; D72.829 Elevated white blood cell count, unspecified; C25.9 Malignant neoplasm of pancreas, unspecified; C78.01 Secondary malignant neoplasm of right lung; C78.7 Secondary malignant neoplasm of liver and intrahepatic bile duct; I10 Essential (primary) hypertension; I25.10 Atherosclerotic heart disease of native coronary artery without angina pectoris; Z95.5 Presence of coronary angioplasty implant and graft; Z79.899 Other long term (current) drug therapy
CPT/HCPCS: 36415; 36591; 71275; 74177; 80053; 83690; 93005; 96372; 96374; 99253; 99283; 99285; 71046; 81003; 82378; 84484; 85025; 85610; 85730; 93010; J1650; J2270; J3490

== ENCOUNTER 2018-05-15 11:24 | Outpatient (CLI) | payer MEDICARE, SELFPAY ==
--- NOTE | 2018-05-15 09:24 | DI.RAD_ITS ---
SYMPTOMS/DIAGNOSIS: PANCREATIC CA, CHEST PAIN WITH DEEP INSPIRATION, ? EFFUSION CHEST X-RAY, FRONTAL AND LATERAL VIEWS: Comparison CT scan is from the same day. The heart size and pulmonary vasculature are within normal limits. There is an indwelling central venous catheter. The tip of the catheter is in good position at the junction of the superior vena cava and right atrium. There is a faint ovoid density seen in the right mid lung corresponding to the soft tissue mass seen on the CT scan from the same day. The lungs otherwise are clear. No effusions or pneumothoraces are identified. Degenerative changes are seen in the spine. IMPRESSION: Ovoid soft tissue mass in the right mid lung most suggestive of a pulmonary metastasis.
== END 2018-05-15 11:44 ==
PROVIDERS: PCP Internal Medicine; Visit Provider Internal Medicine Hematology & Oncology
DX: C25.9 Malignant neoplasm of pancreas, unspecified (principal); R07.9 Chest pain, unspecified; R91.8 Other nonspecific abnormal finding of lung field; D38.1 Neoplasm of uncertain behavior of trachea, bronchus and lung
CPT/HCPCS: 71046

== ENCOUNTER 2018-05-22 00:55 | Outpatient (RCR) | payer MEDICARE, SELFPAY ==
[2018-05-15] MEDS: Normal Saline Flush 10 ML SYR IVP (08:40)
[2018-05-15 08:45] VITALS: BP 136/82; PULSE 79; RESP 18; O2SAT 96
[2018-05-15 09:21] LABS: Abs Immature Grans 0.26 k/cumm (0.0-0.09); Absolute Eosinophil Count 0.02 k/cumm (0.0-0.7); Basophils % 0.1; Eosinophils % 0.1; HCT 28.3 % (36.0-46.0); HGB 9.2 g/dL (12.0-15.5); Immature Grans % 1.2; Lymphocytes % 5.9; Mean Corp. HGB Concentration 32.5 g/dL (32.0-36.0); Mean Corpuscular Hemoglobin 27.2 pg (27.0-33.0); Mean Corpuscular Volume 83.7 fL (80-95); Mean Platelet Volume 9.8 fL (8.0-11.0); Monocytes % 16.5; Neutrophils % 76.2; RBC 3.38 m/cumm (4.00-5.20); RBC Distribution Width 15.5 % (11.7-14.6); White Blood Cell Count 21.54 k/cumm (4.4-10.8)
[2018-05-15 09:23] LABS: Absolute Basophil Count 0.02 k/cumm (0.0-0.2); Absolute Lymphocyte Count 1.27 k/cumm (1.2-3.4); Absolute Monocyte Count 3.55 k/cumm (0.11-0.7); Absolute Neutrophil Count 16.41 k/cumm (1.2-6.7)
[2018-05-15 09:40] LABS: ALT 18 U/L (12-78); AST 19 U/L (15-37); Albumin 2.4 g/dL (3.4-5.0); Alkaline Phosphatase 148 U/L (46-116); BUN 12 mg/dL (7-18); Bilirubin, Total 0.4 mg/dL (0.2-1.0); CREATININE 0.96 mg/dL (0.55-1.02); Calcium 9.3 mg/dL (8.5-10.1); Chloride 93 mmol/L (98-107); Estimated GFR 57.29 (mL/min/1.73m2); Glucose 157 mg/dL (70-100); Potassium 3.9 mmol/L (3.5-5.1); Sodium 130 mmol/L (136-145); Total Protein 6.9 g/dL (6.4-8.2)
[2018-05-15 09:46] LABS: Acanthocytes 2+; Anisocytosis 1+; Diff Comment Agrees w/ Instrument; Platelet Count 505 x1000/uL (130-400)
[2018-05-15 09:47] LABS: Hypochromasia 2+; Microcytosis 1+; Schistocytes 2+
[2018-05-15 09:48] LABS: Howell-Jolly Bodies Present; Poikilocytes 2+
[2018-05-18 09:23] LABS: CEA 55.7 ng/ml
== END 2018-05-28 23:59 | disposition home or self-care (01) ==
LOC: INF 00:55
PROVIDERS: PCP Internal Medicine; Visit Provider Internal Medicine Hematology & Oncology
DX: C25.9 Malignant neoplasm of pancreas, unspecified (principal); C78.7 Secondary malignant neoplasm of liver and intrahepatic bile duct; Z45.2 Encounter for adjustment and management of vascular access device
CPT/HCPCS: 36591; 80053; 82378; 85025